=== PATIENT | male | born 2000 | race Caucasian/White ===

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

== ENCOUNTER → 2020-10-13 | Outpatient (REF) | payer BC ==
[~2020-10-13] MED LIST: CONC36TA4 PO; IBUP-1114 PO
== END ==
LOC: M LAB REF 10:24
PROVIDERS: ATTEND Physician Assistant
DX: J02.9 Acute pharyngitis, unspecified (principal)

== ENCOUNTER 2022-02-11 20:07 | Emergency (ER) | payer BC ==
[~2022-02-11] VITALS: Ht 193 cm; Wt 125.9 kg
[2022-02-11 20:19] VITALS: BP 143/77
[2022-02-11 22:02] LABS: GC DNA AMPLIFICATION POSITIVE (NEGATIVE)
[2022-02-11] MEDS ORDERED: cefTRIAXone 500MG VIAL (J0696 PER 250MG) IM ONE (22:45)
[2022-02-11] MEDS ORDERED: LIDOCAINE 1% SDV 5ML VIAL DILUENT ONE (22:45)
== END 2022-02-11 23:06 | disposition home or self-care (01) ==
LOC: M ED 20:07
DX: A54.09 Other gonococcal infection of lower genitourinary tract (principal); Z88.0 Allergy status to penicillin
CPT/HCPCS: 81001; 87086; 87661; 87810; 87850; 96372; 99282; J0696

== ENCOUNTER → 2022-09-18 | Outpatient (REF) | payer OTHER ==
[2022-09-18 21:40] LABS: APPEARANCE, URINE MANUAL CLEAR (CLEAR); COLOR, URINE MANUAL LT YELLOW (YELLOW)
[2022-09-18 21:41] LABS: BILIRUBIN, URINE MANUAL NEGATIVE (NEGATIVE); BLOOD URINE MANUAL NEGATIVE (NEGATIVE); GLUCOSE, URINE (UA) MANUAL NEGATIVE (NEGATIVE); KETONE, URINE MANUAL NEGATIVE (NEGATIVE); LEUKOCYTE ESTERASE, URINE MAN NEGATIVE (NEGATIVE); NITRITE, URINE MANUAL NEGATIVE (NEGATIVE); PROTEIN, URINE MANUAL NEGATIVE (NEGATIVE); SPECIFIC GRAVITY,URINE MANUAL 1.015 (1.002-1.035); UROBILINOGEN, URINE MANUAL NORMAL (NORMAL)
[2022-09-18 23:28] LABS: GC DNA AMPLIFICATION NEGATIVE (NEGATIVE)
== END ==
LOC: M LAB REF 21:22
PROVIDERS: ATTEND Physician Assistant Medical
DX: Z20.01 Contact with and (suspected) exposure to intestinal infectious diseases due to Escherichia coli (E. coli) (principal)